=== PATIENT | female | born 2000 | race Caucasian/White ===

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

== ENCOUNTER 2020-07-23 22:35 | Emergency (ER) | payer OTHER ==
[~2020-07-23 22:35] MED LIST: COLACE 100MG C100 MG PO; FAMOTIDINE20 MG PO; FEOSOL325 MG PO; GLUCOPHAGE500 MG PO; IBUPROFEN600 MG PO; LABETALOL HCL100 MG PO; LABETALOL HCL200 MG PO; LORTAB 5-325 M1 EACH PO; OMNICEF 300 MG300 MG PO; PRENATAL VITAM1 EAC3 PO; PRENATAL VITAM1 EAC8 PO; ZANTAC 150 MG150 MG PO; ZOFRAN4 MG PO; [UNRECOGNIZED DRUG - OTHER] TP
== END 2020-07-24 00:30 | disposition left against medical advice (07) ==
LOC: ER1 22:35
DX: Z53.21 Procedure and treatment not carried out due to patient leaving prior to being seen by health care provider (principal)

== ENCOUNTER 2021-01-04 00:03 | Emergency (ER) | payer OTHER ==
[2021-01-04] MEDS ORDERED: PROVENTIL HFA6.7 GM INH (01:45)
[2021-01-04] MEDS ORDERED: BENZONATATE100 MG PO (01:45)
[2021-01-04] MEDS ORDERED: LODINE CAP 300300 MG PO (01:45)
== END 2021-01-04 02:15 | disposition left against medical advice (07) ==
LOC: ER1 00:03
DX: J06.9 Acute upper respiratory infection, unspecified (principal); H92.03 Otalgia, bilateral; Z20.822 Contact with and (suspected) exposure to COVID-19
CPT/HCPCS: 0240U; 71045; 81001; 84703; 87081; 87086; 87880; 99283

== ENCOUNTER 2021-01-11 14:09 | Emergency (ER) | payer OTHER ==
[~2021-01-11 14:09] MED LIST changes: +BENZONATATE100 MG PO; +LODINE CAP 300300 MG PO; +PROVENTIL HFA6.7 GM INH
[2021-01-11 15:18] LABS: HEMOGLOBIN 12.1 gm/dl (12.3-15.3); RED BLOOD COUNT 4.76 M/UL (4.00-5.10); WHITE BLOOD COUNT 10.7 K/UL (4.5-11.0)
[2021-01-11 15:42] LABS: BUN/CREATININE RATIO 18 (0-10)
[2021-01-11] MEDS ORDERED: ZOFRAN4 MG PO (16:51)
[2021-01-11] MEDS ORDERED: IBUPROFEN600 MG PO (16:51)
== END 2021-01-11 17:20 | disposition home or self-care (01) ==
LOC: ER1 14:09
PROVIDERS: Nurse Practitioner
DX: R51.9 Headache, unspecified (principal)
CPT/HCPCS: 80053; 81001; 84702; 84703; 85025; 96374; 99284; J1885